=== PATIENT | female | born 1985 | race Asian ===

== ENCOUNTER 2016-07-20 10:16 | Inpatient (IN) | payer SELFPAY ==
[~2016-07-20] VITALS: Ht 170 cm; Wt 75.7 kg
[2016-07-20 12:24] LABS: MEAN CORPUSCULAR HEMOGLOBIN 33 pg (27-31); WHITE BLOOD COUNT (AUTO) 8.4 K/uL (4.8-10.8)
[2016-07-20] MEDS ORDERED: FENT2mCg/mL-ROPIVA0.2%/NS EPID 150 ML EP ONE (12:36)
[2016-07-20 12:46] LABS: HEMATOCRIT 39.5 % (36-48); HEMOGLOBIN 13.5 g/dL (12.0-16.0); MEAN CORPUSCULAR HGB CONC 34 % (32-36); MEAN CORPUSCULAR VOLUME 96 fL (79.0-98.0); PLATELET COUNT (AUTO) 112 K/uL (130-430); RED CELL DISTRIBUTION WIDTH 12.4 % (9.0-15.0)
[2016-07-20] MEDS ORDERED: LR 500 ML IV ONE (12:52)
[2016-07-20 13:00] LABS: BAND % (MANUAL) 1 % (0-6); LYMPHOCYTES % (MANUAL) 16 % (20-46); MONOCYTES % (MANUAL) 1 % (0-11)
[2016-07-20] MEDS ORDERED: FENT2mCg/mL-ROPIVA0.2%/NS EPID 150 ML EP SCH (13:00)
[2016-07-20] MEDS ORDERED: ePHEDrine sulfate 50 MG/ML VIAL IVP PRN (13:00)
[2016-07-20 13:01] LABS: BASOPHILS % (MANUAL) 0 % (0-2); EOSINOPHILS % (MANUAL) 0 % (0-7)
[2016-07-20] MEDS ORDERED: OXYTOCIN/NORMAL SALINE 1,000 ML IV ONE ×2 (13:03→17:19)
[2016-07-20] MEDS ORDERED: LR 1,000 ML IV ONE (13:59)
[2016-07-20] MEDS ORDERED: OXYTOCIN/NORMAL SALINE 1,000 ML IV SCH (13:59)
[2016-07-20] MEDS ORDERED: LR 1,000 ML IV SCH (13:59)
[2016-07-20] MEDS ORDERED: TERBUTALINE SULFATE 1 MG/ML VIAL SUBCUT ONE (14:00)
[2016-07-20] MEDS ORDERED: HEPATITIS B IMMUNE GLOBULIN 0.5 ML PED SYRIN (HYPERHEP-B) I.M. ONE (15:00)
[2016-07-20] MEDS ORDERED: METHYLERGONOVINE MALEATE 0.2 MG/ML AMP ONE (17:05)
[2016-07-20] MEDS ORDERED: ANUSOL 1 EA SUPP.RECT (PREPARATION H) RC PRN (17:30)
[2016-07-20] MEDS ORDERED: DOCUSATE SODIUM 100 MG CAPSULE PO PRN (17:30)
[2016-07-20] MEDS ORDERED: DERMOPLAST SPRAY TP PRN (17:30)
[2016-07-20] MEDS ORDERED: IBUPROFEN 600 MG TABLET PO PRN (17:30)
[2016-07-20] MEDS ORDERED: HYDROCORTISONE 0.5%, 28.35 GM TOPICAL CREAM TP PRN (17:30)
[2016-07-20] MEDS ORDERED: MEASLES,MUMPS&RUBELLA VACC/PF 12500 UNIT/0.5 ML VIAL SUBQ PRN (17:30)
[2016-07-20] MEDS ORDERED: GLYCERIN/WITCH HAZEL (TUCKS PADS) TP PRN (17:30)
[2016-07-20] MEDS ORDERED: METHYLERGONOVINE MALEATE 0.2 MG/ML AMP IM ONE (17:30)
[2016-07-20] MEDS ORDERED: HYDROmorphone 2 MG TAB PO PRN (17:30)
[2016-07-20] MEDS ORDERED: HYDROcodone/ACETAMIN 5-325 MG TAB (NORCO/ VICODIN) PO PRN (17:30)
[2016-07-20] MEDS ORDERED: RHO(D) IMMUNE GLOBULIN/MALTOSE 1500 UNITS/1.3 ML (WINHRO) IM PRN (17:30)
[2016-07-20] MEDS ORDERED: LANOLIN 7 GM OINT. TP PRN (17:30)
[2016-07-20] MEDS: FERROUS SULFATE 325 MG TABLET.DR PO SCH (21:10)
[2016-07-20] MEDS: MILK OF MAGNESIA 30 ML UDC PO SCH (21:11)
[2016-07-21 06:34] LABS: HEMATOCRIT 30.3 % (36-48); HEMOGLOBIN 10.8 g/dL (12.0-16.0)
[2016-07-21] MEDS: FERROUS SULFATE 325 MG TABLET.DR PO SCH ×3 (09:13→21:04)
[2016-07-21] MEDS: MILK OF MAGNESIA 30 ML UDC PO SCH (21:04)
[2016-07-21] MEDS ORDERED: DIPH-TET-PERTUS Vaccine 0.5 ML VIAL (ADACEL) I.M. ONE (21:15)
[2016-07-22] MEDS ORDERED: BISACODYL 10 MG/SUPPOSITORY RC ONE ×2 (09:56→10:00)
[2016-07-22] MEDS: FERROUS SULFATE 325 MG TABLET.DR PO SCH (12:19)
[2016-07-22] MEDS ORDERED: DIPH-TET-PERTUS Vaccine 0.5 ML VIAL (ADACEL) I.M. ONE (14:45)
== END 2016-07-22 16:15 | disposition home or self-care (01) | DRG 774 ==
LOC: SPU 10:16
PROVIDERS: ADMIT Obstetrics & Gynecology; ATTEND Specialist
PROC: 10D07Z6 Extraction of Products of Conception, Vacuum, Via Natural or Artificial Opening (ICD-10-PCS; principal; 2016-07-20)
PROC: 0W8NXZZ Division of Female Perineum, External Approach (ICD-10-PCS; 2016-07-20)
PROC: 4A0HXCZ Measurement of Products of Conception, Cardiac Rate, External Approach (ICD-10-PCS; 2016-07-20)
PROC: 3E0S3CZ (ICD-10-PCS; 2016-07-20)
PROC: 00HU33Z Insertion of Infusion Device into Spinal Canal, Percutaneous Approach (ICD-10-PCS; 2016-07-20)
PROC: 3E0234Z Introduction of Serum, Toxoid and Vaccine into Muscle, Percutaneous Approach (ICD-10-PCS; 2016-07-20)
DX: O98.42 Viral hepatitis complicating childbirth (principal); B19.10 Unspecified viral hepatitis B without hepatic coma; O77.0 Labor and delivery complicated by meconium in amniotic fluid; O75.89 Other specified complications of labor and delivery; Z3A.39 39 weeks gestation of pregnancy; Z37.0 Single live birth; Z23 Encounter for immunization
CPT/HCPCS: 36415; 81002-TC; 85007; 85018-TC; 85027; 86592; 86886; 86900; 86901; 90371; J2210; J2590; J3010